=== PATIENT | male | born 1950 | race Caucasian/White ===

== ENCOUNTER → 2016-08-07 | Outpatient (CLI) | payer OTHER ==
[~2016-08-07] MED LIST: AMLO5TAB2 PO; ASP325T PO; CLOT15CR4 TP; CODE118S2 PO; DEXT1TAB14; FISH OIL 1,2001 EAC1 PO; HYDR-3454 PO; LISI10TA2 PO; LORA10TA54 PO; MTP25TSR PO
[2016-08-07 14:35] LABS: ALANINE AMINOTRANSFERASE 10 U/L (0-55); ALBUMIN 4.1 G/DL (3.2-4.5); ANION GAP 10 MMOL/L (5-14); ASPARTATE AMINO TRANSFERASE 12 U/L (5-34); BILIRUBIN,TOTAL 0.7 MG/DL (0.1-1.0); BLOOD UREA NITROGEN 11 MG/DL (7-18); BUN/CREATININE RATIO 14; CALCIUM 9.1 MG/DL (8.5-10.1); CARBON DIOXIDE 22 MMOL/L (21-32); CHLORIDE 105 MMOL/L (98-107); CHOLESTEROL 173 MG/DL (< 200); CREATININE SERUM 0.81 MG/DL (0.60-1.30); DIRECT LDL 108 MG/DL (1-129); GFR ESTIMATED > 60; GLUCOSE 91 MG/DL (70-105); POTASSIUM 4.1 MMOL/L (3.6-5.0); SODIUM 137 MMOL/L (135-145); TRIGLYCERIDES 170 MG/DL (<150); VLDL CHOLESTEROL 34 MG/DL (5-40)
== END ==
LOC: LAB 12:05
PROVIDERS: ATTEND Internal Medicine Cardiovascular Disease
DX: I25.10 Atherosclerotic heart disease of native coronary artery without angina pectoris (principal); I11.0 Hypertensive heart disease with heart failure; I50.9 Heart failure, unspecified; E78.2 Mixed hyperlipidemia
CPT/HCPCS: 80053; 80061

== ENCOUNTER → 2017-05-02 | Outpatient (CLI) | payer OTHER ==
[~2017-05-02] MED LIST changes: +LORA-714 PO; -LORA10TA54 PO; +REGADENOSON 0.4 MG/5 ML SYR (LEXISCAN) IV ONE
[2017-05-02] MEDS: CATHETER FLUSH 10 ML SYR IV PRN ×2 (08:09→09:39)
[2017-05-02 09:25] VITALS: BP 105/70
--- NOTE | 2017-05-02 16:21 | STRESS TEST ---
DATE OF SERVICE: 05/02/2017 LEXISCAN MYOVIEW STRESS TEST REPORT Baseline heart rate is 67. Baseline blood pressure 105/70. Baseline EKG is sinus rhythm with no ischemic changes. In summary, the patient was injected with 10.68 mCi of technetium-99 Myoview and the resting images were obtained. Then, the patient received 0.4 mg of Lexiscan followed by 30.3 mCi of technetium-99 Myoview. Throughout the test, there were no EKG changes. The resting and stress images were reviewed and compared in the short axis, horizontal long axis, and vertical long axis views. Review of the images showed diaphragmatic attenuation with typical male pattern. No significant ischemia or infarction was seen. SSS is 2, SDS 2, TID value 1.08. On the gated images, the left ventricle appeared to be in normal size with normal contractility, calculated ejection fraction 59%. CONCLUSIONS: 1. The patient tolerated Lexiscan well. 2. Diaphragmatic attenuation with typical male pattern with no significant ischemia or infarction on SPECT images. 3. Normal left ventricular size with normal contractility, calculated ejection fraction 59%. Job ID: [id number] DocumentID: [id number] Dictated Date: 05/02/2017 11:58:58 Enrober Tender Date: 05/02/2017 14:50:02 Dictated By: MONY SWANN MD
== END ==
LOC: CARD 07:37
PROVIDERS: ATTEND Internal Medicine Cardiovascular Disease
DX: I25.10 Atherosclerotic heart disease of native coronary artery without angina pectoris (principal); I11.0 Hypertensive heart disease with heart failure; I50.9 Heart failure, unspecified; E78.2 Mixed hyperlipidemia; G45.8 Other transient cerebral ischemic attacks and related syndromes
CPT/HCPCS: 78452; 93017

== ENCOUNTER 2017-06-10 11:50 | Emergency (ER) | payer OTHER ==
[~2017-06-10] VITALS: Ht 170.2 cm; Wt 80.7 kg
[~2017-06-10 11:50] MED LIST changes: -PRD20T PO; -TRAM50TA2 PO
--- OUTSIDE RECORDS SUMMARY | 2017-06-10 12:21 | XMS REPORT ---
Author Author LUDIVINA CASILLAS Organization e[employer] Address Unknown Phone Unavailable Care Team Providers Care Money Counter Name Role Phone LUDIVINA CASILLAS CP Unavailable Allergies, Adverse Reactions, Alerts Substance Reaction Event Type N.K.D.A. Info Not Available Non Drug Allergy Problems Problem Type Condition Code Onset Dates Condition Status Assessment Impacted cerumen of left ear H61.22 Active Problem Impacted cerumen of left ear H61.22 Active Problem Essential hypertension I10 Active Problem Tinea corporis B35.4 Active Problem Hypertension 401.9 Active Assessment Tinea corporis B35.4 Active Problem CAD (coronary artery disease) I25.10 Active Problem Impacted cerumen of both ears H61.23 Active Medications Medication Code System Code Instructions Start Date End Date Status Dosage Metoprolol Succinate ER [facility] [address]-74 25 MG Orally Once a day 1 tablet Fish Oil [facility] [address]-13 1000 MG Orally Once a day 1 capsule H13-Vddvbu [facility] 111[address]-47447 1 MG Orally not defined Lisinopril [facility] [address]-09 10 MG Orally Once a day 1 tablet Aspirin [facility] [address]-21 325 MG Orally Once a day 1 tablet Lamisil [facility] [address]-51 250 MG Orally Once a day October 22, 2015October 1 tablet Ketoconazole [facility] [address]-50 2 % Externally Once a day October 22, 2015 December 03, 2015 1 application to affected area Procedures Procedure Coding System Code Date EAR IRRIGATION CPT-4 43995 October 22, 2015 Office Visit, Est Pt., Level 3 CPT-4 07811 October 22, 2015 Vital Signs Date/Time: October 22, 2015 Temperature 98.0 F Weight 175.4 lbs Height 67 in BMI 27.47 Index Blood Pressure Diastolic 80 mmHg Blood Pressure Systolic 118 mmHg Cardiac Monitoring Heart Rate 80 bpm Results Name Result Date Reference Range Unit Abnormality Flag EAR LAVAGE Summary Purpose eClinicalWorks Submission
--- OUTSIDE RECORDS SUMMARY | 2017-06-10 12:21 | XMS REPORT ---
Author Author LUDIVINA CASILLAS [facility] eClinical[employer] Address Unknown Phone Unavailable Care Team Providers Care Aircraft Engine Cylinder Mechanic Name Role Phone LUDIVINA CASILLAS CP Unavailable Allergies, Adverse Reactions, Alerts Substance Reaction Event Type N.K.D.A. Info Not Available Non Drug Allergy Problems Problem Type Condition Code Onset Dates Condition Status Assessment Hypertension 401.9 Active Assessment Excessive cerumen in both ear canals 380.4 Active Problem Hypertension 401.9 Active Medications Medication Code System Code Instructions Start Date End Date Status Dosage Metoprolol Succinate ER [facility] [address]-67 25 MG Orally Once a day 1 tablet Aspirin [facility] [address]-35 325 MG Orally Once a day 1 tablet Lisinopril [facility] [address]-16 10 MG Orally Once a day 1 tablet Procedures Procedure Coding System Code Date Office Visit, New Pt., Level 3 CPT-4 20822 Apr 02, 2015 Vital Signs Date/Time: Apr 02, 2015 Cardiac Monitoring Heart Rate 70 bpm Temperature 97.8 F Weight 170.8 lbs Blood Pressure Diastolic 68 mmHg Blood Pressure Systolic 112 mmHg Results No Known Results Summary Purpose eClinicalWorks Submission
--- OUTSIDE RECORDS SUMMARY | 2017-06-10 12:21 | XMS REPORT ---
Author Author LUDIVINA CASILLAS Organization [employer] Address Unknown Phone Unavailable Care Team Providers Care Master Control Engineer Name Role Phone LUDIVINA CASILLAS CP Unavailable Allergies No Known Allergies Problems Problem Type Condition Code Onset Dates Condition Status Problem Impacted cerumen of left ear H61.22 Active Problem Essential hypertension I10 Active Problem Tinea corporis B35.4 Active Problem Hypertension 401.9 Active Problem CAD (coronary artery disease) I25.10 Active Problem Impacted cerumen of both ears H61.23 Active Medications No Known Medications Results No Known Results Summary Purpose eClinicalWorks Submission
--- OUTSIDE RECORDS SUMMARY | 2017-06-10 12:21 | XMS REPORT ---
Author Author LUDIVINA CASILLAS [facility] eClinicalWorks Address Unknown Phone Unavailable Care Team Providers Care Tire Builder Heavy Service Name Role Phone LUDIVINA CASILLAS CP Unavailable Allergies, Adverse Reactions, Alerts Substance Reaction Event Type N.K.D.A. Info Not Available Non Drug Allergy Problems Problem Type Condition Code Onset Dates Condition Status Assessment Sinusitis J32.9 Active Assessment Hypertension 401.9 Active Problem Hypertension 401.9 Active Medications Medication Code System Code Instructions Start Date End Date Status Dosage Claritin [facility] [address]-90 10 MG Orally Once a day May 10, 2015 Jul 09, 2015 1 tablet Metoprolol Succinate ER [facility] [address]-68 25 MG Orally Once a day 1 tablet Azithromycin [facility] [address]-06 250 MG Orally Once a day May 21, 2015 May 26, 2015 2 tablets on the first day, then 1 tablet daily for 4 days Fish Oil [facility] [address]-24 1000 MG Orally Once a day 1 capsule Aspirin [facility] [address]-60 325 MG Orally Once a day 1 tablet Mucinex [facility] [address]-14 600 MG Orally every 12 hrs May 10, 2015 May 20, 2015 1 tablet as needed Lisinopril [facility] [address]-21 10 MG Orally Once a day 1 tablet R54-Sqirdm [facility] [address]-65850 1 MG Orally not defined Procedures Procedure Coding System Code Date Office Visit, Est Pt., Level 3 CPT-4 77541 May 21, 2015 Vital Signs Date/Time: May 21, 2015 Temperature 97.9 F Weight 173.5 lbs Height 67 in BMI 27.17 Index Blood Pressure Diastolic 76 mmHg Blood Pressure Systolic 116 mmHg Cardiac Monitoring Heart Rate 82 bpm Results No Known Results Summary Purpose eClinicalWorks Submission
--- OUTSIDE RECORDS SUMMARY | 2017-06-10 12:21 | XMS REPORT ---
Author Author SARANYA DAVALOS Organization [employer] Address Unknown Phone Unavailable Care Team Providers Care Cuff Slitter Name Role Phone SARANYA DAVALOS CP Unavailable Allergies, Adverse Reactions, Alerts Substance Reaction Event Type N.K.D.A. Info Not Available Non Drug Allergy Problems Problem Type Condition Code Onset Dates Condition Status Assessment Pneumonia J18.9 Active Assessment Seasonal allergies J30.2 Active Problem Hypertension 401.9 Active Medications Medication Code System Code Instructions Start Date End Date Status Dosage Fish Oil [facility] [address]-95 1000 MG Orally Once a day 1 capsule S60-Pqgtex [facility] 13676-84795 1 MG Orally not defined Metoprolol Succinate ER [facility] [address]-13 25 MG Orally Once a day 1 tablet Lisinopril [facility] [address]-92 10 MG Orally Once a day 1 tablet Claritin [facility] [address]-51 10 MG Orally Once a day May 10, 2015 Jul 09, 2015 1 tablet Mucinex [facility] [address]-37 600 MG Orally every 12 hrs May 10, 2015 May 20, 2015 1 tablet as needed Azithromycin [facility] [address]-09 250 MG Orally Once a day May 10, 2015 May 15, 2015 2 tablets on the first day, then 1 tablet daily for 4 days Aspirin [facility] [address]-71 325 MG Orally Once a day 1 tablet Procedures Procedure Coding System Code Date Office Visit, Est Pt., Level 3 CPT-4 20660 May 10, 2015 Vital Signs Date/Time: May 10, 2015 Temperature 97.7 F Weight 174 lbs Height 67 in BMI 27.25 Index Blood Pressure Diastolic 80 mmHg Blood Pressure Systolic 118 mmHg Cardiac Monitoring Heart Rate 88 bpm Results No Known Results Summary Purpose eClinicalWorks Submission
--- NOTE | 2017-06-10 12:41 | ED Upper Extremity ---
General Chief Complaint: Upper Extremity Stated Complaint: LT THUMB PAIN Nursing Triage Note: Pt c/o L thumb pain. Pt reports he hyperextended L thumb 6 months ago. Pt reports pain began again today. Pt denies any new injury. Nursing Sepsis Screen: No Definite Risk Source: patient Exam Limitations: no limitations History of Present Illness Time seen by provider: 12:41 Initial Comments 66 yo male patient presents to the emergency department with complaints of left thumb pain. Patient states he hyperextended, 6 months ago. Reports symptoms had resolved. Today was at work wringing out a clot when he noticed sudden onset left thumb pain. Onset: this morning Pain/Injury Location: left thumb Method of Injury: twisted Modifying Factors: Improves With Immobilization, Worse With Movement Allergies and Home Medications Allergies Coded Allergies: No Known Drug Allergies (Unverified , 01/04/09) Home Medications Aspirin 325 Mg Tab, 1 TAB PO DAILY, Ref 0 (Reported) Hydrocodone/Acetaminophen 1 Each Tablet, 1 EACH PO Q4H, #20 Prescribed by: MICHELE FAROOQ MD on 12/26/15 1200 Lisinopril 10 Mg Tablet, 1 TAB PO DAILY, (Reported) Loratadine 10 Mg Tab.rapdis, 10 MG PO DAILY, (Reported) Metoprolol Succinate 25 Mg Tab, 1 TAB PO DAILY, (Reported) [place]-3 Fatty Acids/Fish Oil 1 Each Capsule, 1 TAB PO TID, (Reported) Prednisone 20 Mg Tab, 40 MG PO DAILY, #10 Ref 0 Prescribed by: MICHELLE TROTTER on 06/10/17 1335 Tramadol HCl 50 Mg Tablet, 50 MG PO Q6H PRN for pain, #14 Ref 0 Prescribed by: MICHELLE TROTTER on 06/10/17 1335 Constitutional: no symptoms reported Musculoskeletal: see HPI, joint pain (left thumb), joint swelling (left thumb) Skin: No change in color, No lumps Psychiatric/Neurological: Denies Numbness, Denies Paresthesia, Denies Tingling , Denies Weakness All Other Systems Reviewed Negative Unless Noted: Yes (Negative excepted noted.) Past Puwjynj-Hpdilg-Kbwqgx Hx Patient Social History Alcohol Use: Denies Use Recreational Drug Use: No Smoking Status: Never a Smoker Recent Foreign Travel: No Contact w/Someone Who Travel: No Recent Infectious Disease Expo: No Recent Hopitalizations: No Immunizations Up To Date Tetanus Booster (TDap): Less than 5yrs Seasonal Allergies Seasonal Allergies: No Surgeries History of Surgeries: No Respiratory History of Respiratory Disorde: No Cardiovascular History of Cardiac Disorders: Yes Cardiac Disorders: Hypertension Neurological History of Neurological Disord: No Reproductive System Hx Reproductive Disorders: No Genitourinary History of Genitourinary Disor: No Gastrointestinal History of Gastrointestinal Di: No Musculoskeletal History of Musculoskeletal Dis: No Endocrine History of Endocrine Disorders: No HEENT History of HEENT Disorders: No Cancer History of Cancer: No Psychosocial History of Psychiatric Problem: No Integumentary History of Skin or Integumenta: No Blood Transfusions History of Blood Disorders: No Reviewed Nursing Assessment Reviewed/Agree w Nursing PMH: Yes Family Medical History Significant Family History: No Pertinent Family Hx Physical Exam Vital Signs Vital Sign - Last 12Hours 06/10/17 12:28 Temp 98.0 Pulse 71 Resp 18 B/P (MAP) 133/76 (95) Pulse Ox 96 O2 Delivery Room Air Capillary Refill : Less Than 3 Seconds General Appearance: WD/WN, no apparent distress Cardiovascular: normal peripheral pulses, no edema Elbow/Forearm: normal inspection, non-tender, no evidence of injury, normal ROM , Left Wrist: Yes normal inspection, Yes non-tender, Yes no evidence of injury, Yes normal ROM Hand: Left, bone tenderness (MCP joint of the left thumb), ecchymosis (faint ecchymosis rodriguez surface of the base of the left thumb), limited ROM (limited ROM left thumb), soft tissue tenderness (base of the left thumb and thenar soft tissue), stiffness (left thumb), swelling (mild swelling of the base of the left thumb) Neurologic/Tendon: normal sensation, normal motor functions, normal tendon functions, responds to pain, no evidence tendon injury Neurologic/Psychiatric: no motor/sensory deficits, alert, normal mood/affect, oriented x 3 Skin: normal color, warm/dry Progress/Results/Core Measures Results/Orders My Orders Orders - MICHELLE TROTTER Finger(S) (06/10/17 12:32) Acetaminophen Tablet (Tylenol Tablet) (06/10/17 13:48) Vital Signs/I&O Vital Sign - Last 12Hours 06/10/17 06/10/17 12:28 14:16 Temp 98.0 98.0 Pulse 71 63 Resp 18 18 B/P (MAP) 133/76 (95) Pulse Ox 96 96 O2 Delivery Room Air Room Air Blood Pressure Mean: 95 Diagnostic Imaging Diagonstic Imaging: Xray Plain Films/CT/US/NM/MRI: other (left thumb xray) Comments degenerative changes of the PIP joint and carpometocarpal joint without acute bony abnormality noted. Reviewed: Reviewed by Me Departure Communication (Admissions) Progress Notes Diagnostic findings discussed with the patient. Plan for discharge to home. Impression Impression: Primary Impression: Left thumb sprain Qualified Codes: S63.642A - Sprain of metacarpophalangeal joint of left thumb , initial encounter Disposition: HOME, SELF-CARE Condition: Improved Departure-Patient Inst. Decision time for Depature: 14:07 Referrals: [facility] (PCP) Primary Care Physician LUDIVINA CASILLAS (Family) Primary Care Physician Patient Instructions: Sprained Thumb (DC) Add. Discharge Instructions: All discharge instructions reviewed with patient and/or family. Voiced understanding. Medications as directed. Tylenol extra strength over the counter as directed by the campus ambassador for pain. Motrin 800 mg by mouth every 8 hours as needed for pain. Ice pack for 20 minute intervals as needed for pain. Elevate the left hand for the next 1-2 days. Brace as instructed. Follow-up with your family practitioner for recheck if no improvement in 7-10 days. Return to the emergency department for worsened symptoms or any other concerns. Scripts Prednisone (Prednisone) 20 Mg Tab 40 MG PO DAILY, #10 TAB 0 Refills Prov: MICHELLE TROTTER 06/10/17 Tramadol HCl (Tramadol HCl) 50 Mg Tablet 50 MG PO Q6H Y for pain, #14 TAB 0 Refills Prov: MICHELLE TROTTER 06/10/17 MICHELLE TROTTER Jun 10, 2017 12:41
[2017-06-10] MEDS ORDERED: PRD20T PO (13:35)
[2017-06-10] MEDS ORDERED: TRAM50TA2 PO (13:35)
[2017-06-10] MEDS ORDERED: ACETAMINOPHEN 500 MG TAB (TYLENOL) PO STA (13:48)
[2017-06-10 14:16] VITALS: BP 112/99
--- NOTE | 2017-06-10 15:08 | Diagnostic Imaging Report ---
INDICATION: Hyperextension injury sustained five months ago. FINDINGS: There is no fracture, dislocation, or acute articular incongruity. IMPRESSION: No acute-appearing abnormality. Dictated by: Dictated on workstation # [id number]
== END 2017-06-10 14:16 | disposition home or self-care (01) ==
LOC: EDUNIT# 11:50 → ER 11:52
DX: S63.642A Sprain of metacarpophalangeal joint of left thumb, initial encounter (principal); I10 Essential (primary) hypertension; Z79.82 Long term (current) use of aspirin; X50.0XXA Overexertion from strenuous movement or load, initial encounter
CPT/HCPCS: 73140; 99283

== ENCOUNTER → 2017-06-10 | Outpatient (CLI) | payer OTHER ==
[~2017-06-10] MED LIST changes: +PRD20T PO; -REGADENOSON 0.4 MG/5 ML SYR (LEXISCAN) IV ONE; +TRAM50TA2 PO
== END ==
LOC: CARD 11:10
PROVIDERS: ATTEND Internal Medicine Cardiovascular Disease
DX: I25.10 Atherosclerotic heart disease of native coronary artery without angina pectoris (principal); I11.0 Hypertensive heart disease with heart failure; I50.9 Heart failure, unspecified; E78.2 Mixed hyperlipidemia; G45.8 Other transient cerebral ischemic attacks and related syndromes
CPT/HCPCS: 93306

== ENCOUNTER → 2020-03-19 | Outpatient (CLI) | payer MEDICARE, OTHER ==
[~2020-03-19] MED LIST changes: -HYDR-3454 PO; +HYDR-3455 PO; +PRD20T PO; +TRM50T PO
--- NOTE | 2020-03-19 09:41 | Diagnostic Imaging Report ---
EXAMINATION: CT Chest without contrast (lung screening). TECHNIQUE: Multiple contiguous axial images were obtained through the chest without the use of intravenous contrast according to lung cancer screening protocol. All CT scans use one or more of the following dose optimizing techniques: automated exposure control, MA and/or KvP adjustment based on a patient size and exam type, or iterative reconstruction. HISTORY: 40 pack year history of smoking. COMPARISON: None available. FINDINGS: There is no edema or pneumonia. No pleural effusion. No pneumothorax. No suspicious nodules. There is no axillary or supraclavicular lymphadenopathy. There is no mediastinal lymphadenopathy. Heart size is normal. There are no coronary artery calcifications. No pericardial effusion. Aorta is normal in caliber. Limited views of the upper abdomen are unremarkable. There are no suspicious osseus lesions. IMPRESSION: 1. No suspicious pulmonary nodules. LUNG-RADS CATEGORY: 1 MODIFIER: None. Dictated by: Dictated on workstation # [id number]
== END ==
LOC: RAD 08:51
PROVIDERS: ATTEND Nurse Practitioner
DX: Z12.2 Encounter for screening for malignant neoplasm of respiratory organs (principal); Z87.891 Personal history of nicotine dependence

== ENCOUNTER → 2021-07-16 | Outpatient (CLI) | payer MEDICARE ==
[~2021-07-16] MED LIST changes: +LORA-53 PO; -LORA-714 PO
--- NOTE | 2021-07-16 09:10 | Diagnostic Imaging Report ---
INDICATION: Abdominal aortic aneurysm screening. Abdominal aortic sonography performed in a routine fashion. Portions of the aorta are obscured by bowel gas. The visualized portions of the aorta, however, are not aneurysmal, the maximal aortic diameter is 2.5 cm. IMPRESSION: Partially limited study. Abdominal aorta shows no evidence of aneurysm. Dictated by: Dictated on workstation # [id number]
== END ==
LOC: RAD 08:00
PROVIDERS: ATTEND Nurse Practitioner
DX: I71.4 Abdominal aortic aneurysm, without rupture (principal)
CPT/HCPCS: 76775

== ENCOUNTER → 2021-12-07 | Outpatient (CLI) | payer MEDICARE | LOC: CARD 14:00 | PROVIDERS: ATTEND Internal Medicine Cardiovascular Disease | DX: I10 Essential (primary) hypertension (principal); I25.10 Atherosclerotic heart disease of native coronary artery without angina pectoris | CPT/HCPCS: 93306 ==

== ENCOUNTER → 2021-12-30 | Outpatient (CLI) | payer MEDICARE ==
[~2021-12-30] MED LIST changes: +CATHETER FLUSH 10 ML SYR IVP PRN; +REGADENOSON 0.4 MG/5 ML SYR (LEXISCAN) IV ONE
[2021-12-30 09:42] VITALS: BP 124/84
[2021-12-30 09:45] VITALS: BP 127/74
--- NOTE | 2021-12-30 11:07 | Cardiology Stress Test Report ---
Stress Test Report Date of Procedure/Referring: Date of Procedure: Dec 30, 2021 [facility] Admitting Physician Admitting Physician: Attending Physician: Mony Jackman MD Indications: CP Baseline Heart Rate: 69 Baseline Blood Pressure: Blood Pressure Systolic: 127 Blood Pressure Diastolic: 74 Baseline Vitals Vital Signs Date Time Temp Pulse Resp B/P (MAP) Pulse Ox O2 Delivery O2 Flow Rate FiO2 12/30/21 09:42 97 18 124/84 (97) 99 Room Air Baseline EKG: Baseline EKG: NSR Summary After explaining the procedure to the patient, he signed a consent and then brought to the stress nuclear laboratory. Patient received 0.4 mg Lexiscan for stress test, ECG, heart rate and blood pressure were monitored continuously. Resting and stress dose of radio tracer were injected, imaging was acquired and reviewed in short axis, horizontal long axis and vertical long axis views. TID: 1.09 SSS: 8 SDS: 6 EF: 68 1. Patient tolerated Lexiscan well 2. Reversible ischemia involving the anterior wall and anterolateral wall 3. Normal left ventricular size, ejection fraction 68% Copy Copies To 1: [facility]/ MONY JACKMAN MD Dec 30, 2021 11:07
== END ==
LOC: CARD 08:30
PROVIDERS: ATTEND Internal Medicine Cardiovascular Disease
DX: I25.10 Atherosclerotic heart disease of native coronary artery without angina pectoris (principal); I10 Essential (primary) hypertension
CPT/HCPCS: 78452; 93017; A9502

== ENCOUNTER 2022-01-27 07:50 | Day surgery (SDC) | payer MEDICARE, MEDICAID ==
[~2022-01-27] VITALS: Ht 170.2 cm; Wt 88.1 kg
[2022-01-27] VITALS (9 sets, daily range): BP systolic 96–136; BP diastolic 66–81
[~2022-01-27 07:50] MED LIST changes: -CATHETER FLUSH 10 ML SYR IVP PRN; -REGADENOSON 0.4 MG/5 ML SYR (LEXISCAN) IV ONE
[2022-01-27] MEDS ORDERED: NS IV 1000 ML 1,000 ML IV SCH ×3 (08:00→12:15)
[2022-01-27] MEDS ORDERED: LIDOCAINE 1% INJ 20 ML VIAL ONE (08:06)
[2022-01-27] MEDS ORDERED: NS IV 1000 ML 1,000 ML ONE (08:06)
[2022-01-27] MEDS ORDERED: HEParin (CATH LAB) 2,000 ML IV ONE (08:06)
--- NOTE | 2022-01-27 08:39 | Diagnostic Imaging Report ---
INDICATION: Abnormal stress test, pre-heart catheterization evaluation. TECHNIQUE: Single view chest 8:24 AM. CORRELATION STUDY: None FINDINGS: The heart size, mediastinal configuration and pulmonary vascularity are within normal limits. Limited depth of inspiration. Given this, the lungs are clear with no consolidating infiltrate. There is no significant effusion or pneumothorax. IMPRESSION: 1. Negative appearing single view chest. Dictated by: Dictated on workstation # [id number]
[2022-01-27 08:43] LABS: HEMATOCRIT 45 % (40-54); HEMOGLOBIN 15.1 g/dL (13.3-17.7); MEAN CORPUSCULAR HEMOGLOBIN 31 pg (25-34); MEAN CORPUSCULAR HGB CONC 34 g/dL (32-36); MEAN CORPUSCULAR VOLUME 93 fL (80-99); MEAN PLATELET VOLUME 10.6 fL (9.0-12.2); PLATELET COUNT 245 10^3/uL (130-400); WHITE BLOOD COUNT 8.6 10^3/uL (4.3-11.0)
[2022-01-27 08:45] LABS: BILIRUBIN,URINE NEGATIVE (NEGATIVE); CLARITY,URINE CLEAR; COLOR,URINE YELLOW; GLUCOSE, URINE (UA) NEGATIVE (NEGATIVE); KETONES,URINE NEGATIVE (NEGATIVE); LEUKOCYTE ESTERASE ,URINE NEGATIVE (NEGATIVE); NITRITE,URINE NEGATIVE (NEGATIVE); PROTEIN,URINE NEGATIVE (NEGATIVE)
[2022-01-27] MEDS ORDERED: METF-865 PO ×2 (08:51→12:13)
[2022-01-27] MEDS ORDERED: ATOR20TA66 PO (08:51)
[2022-01-27] MEDS ORDERED: LISI5TAB20 PO (08:51)
[2022-01-27] MEDS ORDERED: FLUT15.845 NS (08:51)
[2022-01-27] MEDS ORDERED: ASPI-1238 PO (08:51)
[2022-01-27] MEDS ORDERED: LORA5TAB9 PO (08:51)
[2022-01-27] MEDS ORDERED: CYAN250014 PO (08:51)
[2022-01-27 09:01] LABS: PROTHROMBIN TIME PATIENT 13.3 SEC (12.2-14.7)
[2022-01-27 09:02] LABS: ALBUMIN 4.1 GM/DL (3.2-4.5); BILIRUBIN,TOTAL 0.6 MG/DL (0.1-1.0); CALCIUM 9.6 MG/DL (8.5-10.1); CREATININE SERUM 0.82 MG/DL (0.60-1.30); POTASSIUM 3.9 MMOL/L (3.6-5.0); TOTAL PROTEIN 7.6 GM/DL (6.4-8.2)
[2022-01-27 09:10] LABS: BACTERIA,URINE NEGATIVE /HPF; SQUAMOUS EPITHELIAL CELL,UR 0-2 /HPF; WBC,URINE 0-2 /HPF
[2022-01-27] MEDS ORDERED: HEParin 1000 UNIT/ML (10ML VIAL) FOR BOLUS ONE (11:22)
[2022-01-27] MEDS ORDERED: MIDAZOLAM 5 MG/5 ML (VERSED) VIAL ONE (11:22)
[2022-01-27] MEDS ORDERED: VERAPAMIL 5 MG/2 ML (CALAN) VIAL IV ONE (11:22)
[2022-01-27] MEDS ORDERED: NITRO DRIP 25000 MCG/D5W 250 ML IV ONE (11:22)
[2022-01-27] MEDS ORDERED: fentaNYL INJ 100 MCG/2 ML AMP ONE (11:22)
--- NOTE | 2022-01-27 11:48 | Conscious Sedation/ASA ---
Conscious Sedation Pre-Proced Time 11:00 ASA Score 3 For ASA 3 and 4: Consider anesthesia and medical clearance. Also, for patients with a history of failed moderate sedation consider anesthesia. Airway Lungs Heart ASA score ASA 1: a normal healthy patient ASA 2: a patient with a mild systemic disease (mid diabetes, controlled hypertension, obesity x ASA 3: a patient with a severe systemic disease that limits activity (angina, COPD, prior Myocardial infarction) ASA 4: a patient with an incapacitating disease that is a constant threat to life (CHF, renal failure) ASA 5: a moribund patient not expected to survive 24 hrs. (ruptured aneurysm) ASA 6: a declared brain- patient whose organs are being harvested. For emergent operations, add the letter E after the classification Mallampati Classification Grade 3 Sedation Plan Analgesia, Amnesia, Plan communicated to team members, Discussed options with patient/fam, Discussed risks with patient/fam The patient is an appropriate candidate to undergo the planned procedure, sedation, and anesthesia. The patient immediately re-assessed prior to indication. MONY SWANN MD Jan 27, 2022 11:48
--- NOTE | 2022-01-27 12:13 | Discharge Inst-Post CATH ---
Discharge Inst-CATH/EP Problems Reviewed?: Yes Post Cardiac Cath/EP D/C Inst Follow Up/Plan Hold metformin for [address] Jackman's office in 2 to 4 weeks <b>CARDIAC CATH/EP PROCEDURE DISCHARGE INSTRUCTIONS</b> ACTIVITY * Go Home directly and rest. * Limit activity of the leg (or wrist if it was used) for 7 days including aerobics, swimming, jogging, bicycling, etc. * Restrict stair-climbing for 7 days if possible, if not, climb up with your non-cath leg, then bring together on the same step. * Avoid lifting, pushing, pulling or excessive movement of the affected extremity for 7 days. * Customary sexual activity may be resumed after 2 days-use caution not to use a position that strains or causes pain to the affected extremity. * No driving for 24 hours. * NO SMOKING. * Avoid straining for bowel movements for 7 days. * Gentle walking on level ground is allowed. * Returning to work will depend on the type of procedure and the results. Your doctor will discuss this with you. CALL YOUR DOCTOR FOR ANY OF THE FOLLOWING: *If bleeding from the puncture site occurs- Apply gentle pressure to site with clean cloth and call your doctor or EMS. * If a knot or lump forms under the skin, increases in size, or causes pain. * If bruising appears to be worsening or moving further down your leg instead of disappearing. * Temperature above 101 F. CARE OF YOUR GROIN INCISION; * Bruising or purple discoloration of the skin near the puncture site is common. * You may shower only, no bathtub bathing for 5 days. Be careful to avoid slipping as your leg may feel stiff. * If a closure device was used on your femoral artery, please see the attached guide regarding care of the device and your leg. * Leave dressing on FOR 24 hours. CARE OF YOUR WRIST INCISION; * Bruising or purple discoloration of the skin near the puncture site is common. * You may shower. * DO NOT submerge wrist. * Leave dressing on FOR 24 hours. MONY JACKMAN MD Jan 27, 2022 12:13
--- NOTE | 2022-01-27 12:17 | Cardiac Cath Report ---
Cardiac Cath Report Physician (s)/Cabinetmaker Helper (s) Physician MONY SWANN MD Pre-Procedure Diagnosis Pre-Procedure Diagnosis: Coronary artery disease Post-Procedure Note Procedure Start Date: Jan 27, 2022 Name of Procedure: Left heart catheterization Findings/Procedure Note PROCEDURE NOTE: 71-year-old gentleman with history of diabetes mellitus, hypertension hyperlipidemia, had an abnormal stress test, scheduled for cardiac catheterization possible PTCA. After explaining the procedure to the patient, all pros and cons were explained, all questions were answered. The patient signed the consent and then he was placed on the cardiac catheterization laboratory. Groin was prepped SL fashion local anesthesia was used. Sheath placed in the right radial artery, [place] catheter was advanced to the left ventricular cavity, pressure was measured, pullback LV to aorta was done, engage the right and left coronary system, angiogram was done. At the end of the procedure the sheath was removed. Vascular band was used FINDINGS: Hemodynamics LV 96/17, end-diastolic pressure of 17 Aorta 89/65 mean of 76 ANATOMY: Left Main is free of obstructive disease Left Anterior Descending has mild disease in the mid LAD nonobstructive disease Left Circumflex has mild disease nonobstructive disease Right Coronary Artery is dominant artery with mild disease nonobstructive disease LV Gram was not done, pressure was measured, stress test showed on the SPECT images ejection fraction over 60% CONCLUSION: 1. Mild coronary artery disease nonobstructive disease, 30% stenosis in the mid LAD 2. Normal left ventricular end-diastolic pressure, known ejection fraction over 60% from the stress test. DISCUSSION AND RECOMMENDATION: Continue to maximize medical therapy Anesthesia Type: Conscious Sedation Estimated blood loss (mL): 10 ml Contrast Amount: 34 ml Total Radiation Dose: 303 mGy Post-Procedure Diagnosis Post-operative diagnosis: Chest pain Coronary artery disease Hypertension Hyperlipidemia Diabetes mellitus MONY SWANN MD Jan 27, 2022 12:17
== END 2022-01-27 15:00 | disposition home or self-care (01) ==
LOC: CATH 07:50 → SDC 12:25 → CATH 15:00
PROVIDERS: ATTEND Internal Medicine Cardiovascular Disease
DX: I25.10 Atherosclerotic heart disease of native coronary artery without angina pectoris (principal); E11.42 Type 2 diabetes mellitus with diabetic polyneuropathy; E78.2 Mixed hyperlipidemia; I11.0 Hypertensive heart disease with heart failure; I50.9 Heart failure, unspecified; I65.23 Occlusion and stenosis of bilateral carotid arteries; F17.210 Nicotine dependence, cigarettes, uncomplicated; Z28.310 Unvaccinated for COVID-19; Z79.82 Long term (current) use of aspirin; Z79.84 Long term (current) use of oral hypoglycemic drugs
CPT/HCPCS: 71045; 80053; 80061; 81000; 85027; 85610; 85730; 87081; 93005; 93458; C1894; 36415